=== PATIENT | female | born 1945 | race Caucasian/White ===

== ENCOUNTER → 2016-10-15 | Outpatient (CLI) | payer MEDICARE ==
[2015-11-02 10:03] VITALS: BP 108/67
[~2016-10-15] MED LIST: ALPR0.5T6 PO; BLAC200C PO; CALC500T27 PO; CITA20TA5 PO; GLUC100018 PO; LAMO25TB2 PO; MULT1TAB97 PO; OLAN10TA9 PO; OMEG500C3 PO; QUET150T PO; TRAZ50TA15 PO
--- NOTE | 2016-10-15 15:22 | RAD ---
DATE: 10/15/2016 EXAM: DIGITAL DIAGNOSTIC RT, BREAST RIGHT HISTORY: Suspicious microcalcifications COMPARISON: 09/13/2016 This study was interpreted with the benefit of Computerized Aided Detection (CAD). FINDINGS: Outside studies demonstrated a tight cluster of numerous microcalcifications in the posterior aspect of the right breast seen in only one projection. Today we performed multiple exaggerated CC and straight the lateral, lateral medial and MLO views to optimally delineate these calcifications prior to planned biopsy. These calcifications were redemonstrated. They lie far posteriorly at the 9:30 location in the left breast. Their far posterior location would be quite problematic for stereotactic biopsy. Right breast ultrasound, 10/15/2016: A targeted ultrasound of the right breast was performed in attempt to localize the suspicious microcalcifications. The cluster of calcifications could not be visualized sonographically. IMPRESSION: Suspicious microcalcifications at the 9:30 location in the right breast. Biopsy following attempted needle localization is suggested for further evaluation. BI-RADS CATEGORY: 4 SUSPICIOUS ABNORMALITY- BIOPSY SHOULD BE CONSIDERED RECOMMENDED FOLLOW-UP: BIO BIOPSY RECOMMENDED Note: Findings were discussed with the patient at the time of the exam and she is aware of our recommendation for biopsy. PQRS compliance statement: Patient information was entered into a reminder system with a target due date for the next mammogram. Mammography is a sensitive method for finding small breast cancers, but it does not detect them all and is not a substitute for careful clinical examination. A negative mammogram does not negate a clinically suspicious finding and should not result in delay in biopsying a clinically suspicious abnormality. "Our facility is accredited by the [employer] Mammography Program."
== END | disposition home or self-care (01) ==
LOC: MAMMO 13:54
PROVIDERS: ATTEND Surgery
DX: R92.8 Other abnormal and inconclusive findings on diagnostic imaging of breast (principal)
CPT/HCPCS: 76641; G0206; 77065

== ENCOUNTER 2016-10-29 06:49 | Day surgery (SDC) | payer MEDICARE ==
[~2016-10-29] VITALS: Ht 167.6 cm; Wt 74.4 kg
[~2016-10-29 06:49] MED LIST changes: +BLAC540C4 PO; +BUSP10TA PO; +ERGO2000 PO; +IBUP200T43 PO; +QUET200T4 PO; +TRAZ100T12 PO; +TRIA10.8 NS
[2016-10-29] MEDS ORDERED: PROCHLORPERAZINE 10 MG/2 ML VIAL. IV PRN (07:00)
[2016-10-29] MEDS ORDERED: IV RINGERS,LACTATED 1000ML 1,000 ML IV SCH (07:00)
[2016-10-29] MEDS ORDERED: ONDANSETRON PF 4 MG/2 ML VIAL. IV PRN (07:00)
[2016-10-29] MEDS ORDERED: fentaNYL PF VIAL 100 MCG/2 ML VIAL IV PRN (07:00)
[2016-10-29] MEDS ORDERED: LIDOCAINE 1% 1 ML SYRINGE. ID PRN (07:00)
[2016-10-29] MEDS ORDERED: BUPIVAC MPF-EPI 0.5%-1:200000 30 ML VIAL. ONE (07:18)
[2016-10-29] MEDS ORDERED: LIDOCAINE 1% / SOD BICARB 8.4% 20 ML VIAL. IJ ONE (07:45)
[2016-10-29] MEDS ORDERED: ONDANSETRON PF 4 MG/2 ML VIAL. ONE (08:31)
[2016-10-29] MEDS ORDERED: fentaNYL PF VIAL 100 MCG/2 ML VIAL ONE (08:31)
[2016-10-29] MEDS ORDERED: DESFLURANE 31 TO 60 MINUTES IH ONE (08:31)
[2016-10-29] MEDS ORDERED: DEXAMETHASONE SOD PHOS 20 MG/5 ML VIAL. ONE (08:31)
[2016-10-29] MEDS ORDERED: LIDOCAINE 2% PF Vial for OR 5 ML VIAL. ONE (08:31)
[2016-10-29] MEDS ORDERED: PROPOFOL 20 ML IV ONE (08:31)
--- NOTE | 2016-10-29 08:54 | RAD ---
Right breast needle localization, 10/29/2016: History: Suspicious microcalcifications Previous studies demonstrated a cluster of suspicious microcalcifications at approximately the 9:00 location posteriorly in the right breast. Under local anesthesia, aseptic conditions and mammographic guidance a Kopan's needle with modified retention wire was passed through this area via a lateral approach. The needle was then removed and the wire left in place. The final images show that the cluster of suspicious microcalcifications lies directly anterior to the proximal aspect of the thickened portion of the retention wire, approximately 5 cm deep to the skin surface. The patient tolerated the procedure well and was sent to surgery in good condition.
--- NOTE | 2016-10-29 10:08 | RAD ---
Right specimen mammogram, 10/29/2016: History: Suspicious microcalcifications A digital mammogram of a surgical specimen from the right breast was performed. The targeted microcalcifications lie near the center of the specimen at the 8F level in the specimen container, directly adjacent to the thickened portion of the retention wire.
--- NOTE | 2016-10-29 10:27 | PDOC ---
BRIEF OPERATIVE NOTE Date: October 29, 2016 Pre-Op Diagnosis calcifications right breast Post-Op Diagnosis same Procedure Performed needle localization biopsy Surgeon Mckinley Anesthesia Type: General Blood Loss 10cc IV Fluid 400cc Specimens Obtained needle localized tissue Findings specimen X-ray showed the calcifications contained within the specimen Complications nonr Additional Remarks Wk # [id number] HAKEEM NORIEGA MD October 29, 2016 10:27
--- NOTE | 2016-10-29 10:28 | DISCH ---
DISCHARGE INSTRUCTIONS Condition on Discharge Condition on Discharge: Stable Activity After Discharge Activity Instructions for Disc: Activity as tolerated, Avoid exertion Driving Instructions after Dis: Do not drive today Diet after Discharge Diet after Discharge: Regular Wound Incision Care Wound/Incision Care: Ice to area for comfort Other wound/incision instructi: october Follow-Up Follow Up With: Mckinley next week HAKEEM NORIEGA MD October 29, 2016 10:28
[2016-10-29] MEDS: fentaNYL PF VIAL 100 MCG/2 ML VIAL IV PRN ×2 (10:34→10:41)
[2016-10-29] MEDS ORDERED: TRAM-29 PO ×2 (10:38→10:39)
[2016-10-29] MEDS ORDERED: traMADol 50 MG TABLET PO PRN (11:15)
--- NOTE | 2016-10-29 11:25 | OP ---
DATE OF SURGERY: 10/29/2016 PREOPERATIVE DIAGNOSIS: Calcifications, right breast. POSTOPERATIVE DIAGNOSIS: Calcifications, right breast. PROCEDURE: Needle localization, breast biopsy, right. SURGEON: Hakeem Noriega MD. ANESTHESIA: General LMA. ESTIMATED BLOOD LOSS: 10 mL. IV FLUIDS: 400 mL. INDICATIONS: The patient is a 71-year-old with calcific changes in the right breast, brought for a biopsy. DESCRIPTION OF PROCEDURE: The patient went to the [facility], underwent localization of some calcifications in the right breast. She was brought to the OR where she was given a general LMA and the right breast and chest were prepped and draped in the usual sterile fashion. A curvilinear incision between the entry point of the wire and the nipple areolar complex in the quadrant was infiltrated with local anesthetic, sharply incised and dissection carried down to the localization wire. Wire was delivered into the wound. Dissection carried medially to identify the area corresponding to the changes on the mammogram. This tissue anterior to the proximal shoulder of the localization wire was harvested sharply and sent to Radiology for specimen radiograph. Hemostasis in the wound obtained with cautery. The dissection had carried down to the rib through some pectoralis musculature. With the cavity filled with sterile saline, a Valsalva was administered by Anesthesia up to 30 cm water with no suggestion of an air leak identified. While waiting for the report from Radiology, the pectoralis musculature was approximated with 3-0 Vicryl. The breast tissue approximated with 3-0 Vicryl. After an intraoperative report confirming the presence of the calcifications in the specimen was received by the OR, the skin incision was closed with a subcuticular 4-0 Monocryl. Steri-Strips and sterile dressing applied. The patient awakened from her anesthetic and taken to the recovery room in satisfactory condition. HAKEEM NORIEGA MD DR: DANIKA/urbano JOB#: [id number] / [id number]
[2016-10-29 11:56] VITALS: BP 154/58
--- NOTE | 2016-11-01 08:39 | PATHOLOGY ---
PATHOLOGY REPORT * * * * * * * * FINAL DIAGNOSIS: Breast and skeletal muscle tissue, right breast biopsy: - Flat epithelial atypia, focal, with associated calcifications. - Stromal fibrosis and mild duct ectasia, focal. - Neuroma, small. COMMENT: Sections of the right breast biopsy show fibrocystic changes and a small focus of flat epithelial atypia with associated calcifications. There is also a small neuroma. There is no evidence of malignancy. REPORT ELECTRONICALLY SIGNED BY: Cameron Buck M.D. DATE/TIME: 11/01/2016 08:38 * * * * * * * * GROSS PATHOLOGY: Received in formalin, labeled "Aminah-right breast biopsy" is an irregular portion of yellow-brown fibrofatty tissue consistent with a wire localized, unoriented breast excisional biopsy (7 g, 5.0 x 4.2 x 0.7 cm). The specimen has been flattened by a radiological container. The external surface of the unoriented tissue is inked black and the tissue is sectioned to reveal a yellow-hackett to white-hackett fibrofatty cut surface. The fibrotic areas are focally indurated. However, no discrete masses are grossly identified. The specimen is submitted entirely in cassettes A1-A8. Time surgically removed: 9:45 on 10/29/16, time placed in formalin: 10:30 on 10/29/16, time of fixation: 35 hours 25 minutes (KIMBERLY; 10/30/2016) INITIAL CPT CODE(S): A; 55273 Professional services performed [place] [address] Technical services performed by [facility] at [address] [place] [address] [address], [place] [address]. SPECIMEN(S) RECEIVED: A.Right breast biopsy CLINICAL HISTORY: Right breast calcifications on mammogram PATIENT: JACINTO NAVARRO /AGE: 510/28/1945 (Age: 71) PATIENT #: [id number] ALT CASE #: SPECIMEN COLLECTION DATE: 10/29/2016 SPECIMEN RECEIVED DATE: 10/29/2016 [facility] - [address] [place] [address] - PHONE: [phone] * * * END OF REPORT * * *
--- NOTE | 2016-11-14 13:25 | PDOC1 ---
History and Physical Date of Admission Date of Admission DATE: 10/29/16 TIME: 07:30 Identification/Chief Complaint Chief Complaint calcifications right breast Problems: Source Source: Patient History of Present Illness History of Present Illness Ms. Burr is a 71-year-old female who on recent mammography had some calcifications in the lower outer aspect of her right breast. She is brought for needle localization biopsy. Past Medical History Cardiovascular: No pertinent hx Pulmonary: No pertinent hx GI: No pertinent hx Psych: Anxiety, Bipolar Past Surgical History Past Surgical History: Tonsillectomy, Other (hemorrhoids, breast implants, subsequent removal, back surgery) Family History Family History: Diabetes, Heart Disease, Stroke Social History Smoke: No ALCOHOL: none Drugs: None Current Medications Current Medications Current Medications Ondansetron HCl (Zofran) 4 mg PRN Q6HRS PRN IV NAUSEA/VOMITING; Start 10/29/16 at 07:00; Stop 10/29/16 at 12:10; Status DC Fentanyl Citrate (Fentanyl 2ml Vial) 25 mcg PRN Q5MIN PRN IV MILD PAIN; Start 10/29/16 at 07:00; Stop 10/29/16 at 12:10; Status DC Fentanyl Citrate (Fentanyl 2ml Vial) 50 mcg PRN Q5MIN PRN IV MODERATE PAIN Last administered on 10/29/16 10:41; Start 10/29/16 at 07:00; Stop 10/29/16 at 12:10; Status DC Ringer's Solution 1,000 ml @ 30 mls/hr Q24H IV Last administered on 10/29/16 07:00; Start 10/29/16 at 07:00; Stop 10/29/16 at 12:10; Status DC Lidocaine HCl 2 ml PRN 1X PRN ID PRIOR TO IV START; Start 10/29/16 at 07:00; Stop 10/29/16 at 12:10; Status DC Prochlorperazine Edisylate (Compazine) 5 mg PACU PRN PRN IV NAUSEA, MRX1; Start 10/29/16 at 07:00; Stop 10/29/16 at 12:10; Status DC Cefazolin Sodium/ Dextrose 50 ml @ 100 mls/hr 1X PREOP PRN IV PRIOR TO PROCEDURE Last administered on 10/29/16 09:30; Start 10/29/16 at 06:00; Stop at 12:10; Status DC Bupivacaine HCl/ Epinephrine Bitart (Sensorcain-Mpf Epi 0.5%-1:414174) 30 ml STK -MED ONCE .ROUTE Last administered on 10/29/16 09:44; Start 10/29/16 at 07:18 ; Stop 10/29/16 at 07:19; Status DC Lidocaine/Sodium Bicarbonate (Buffered Lidocaine 1%) 20 ml 1X ONCE IJ Last administered on 10/29/16 07:45; Start 10/29/16 at 07:45; Stop 10/29/16 at 07:46 ; Status DC Dexamethasone Sodium Phosphate (Decadron) 20 mg STK-MED ONCE .ROUTE ; Start at 08:31; Stop 10/29/16 at 08:32; Status DC Ondansetron HCl (Zofran) 4 mg STK-MED ONCE .ROUTE ; Start 10/29/16 at 08:31; Stop 10/29/16 at 08:32; Status DC Propofol 20 ml @ As Directed STK-MED ONCE IV ; Start 10/29/16 at 08:31; Stop at 08:32; Status DC Lidocaine HCl (Lidocaine Pf 2% Vial) 5 ml STK-MED ONCE .ROUTE ; Start 10/29/16 at 08:31; Stop 10/29/16 at 08:32; Status DC Desflurane (Suprane) 30 ml STK-MED ONCE IH ; Start 10/29/16 at 08:31; Stop 10/29 at 08:32; Status DC Fentanyl Citrate (Fentanyl 2ml Vial) 100 mcg STK-MED ONCE .ROUTE ; Start at 08:31; Stop 10/29/16 at 08:32; Status DC Tramadol HCl (Ultram) 50 mg 1X PACU PRN PO PAIN Last administered on 10/29/16 11:21; Start 10/29/16 at 11:15; Stop 10/29/16 at 12:10; Status DC Active Scripts Active Reported Ultram (Tramadol Hcl) 50 Mg Tablet 50 Mg PO Q4H PRN LAST DOSE GIVEN: DATE: TIME: Nasacort (Triamcinolone Acetonide) 10.8 Ml [place] 2 [place] NS QEVNG Buspirone Hcl 10 Mg Tablet 2 Tab PO TID Motrin Ib (Ibuprofen) 200 Mg Tablet 200 Mg PO PRN PRN [place] 540 Mg Capsule 540 Mg PO Vitamin D2 (Ergocalciferol (Vitamin D2)) 2,000 Unit Tablet 2,000 Unit PO DAILY Trazodone Hcl 100 Mg Tablet 1 Tab PO PRN QHS PRN Seroquel (Quetiapine Fumarate) 200 Mg Tablet 1 Tab PO QHS Allergies Allergies: Coded Allergies: prednisone (Unverified Allergy, Severe, Photosensitivity, 10/29/16) had hallucinatioins,out of it for a couple of days and sensitivity to lights and sounds codeine (Unverified Allergy, Intermediate, Unknown, 10/29/16) had a possible reaction years ago with a larger dose , but recently had a smaller dose and did OK with it ROS Review of System Negative with exception of present complaints Physical Exam General: Alert, Oriented X3, Cooperative, No acute distress HEENT: Atraumatic Lungs: Clear to auscultation Heart: RRR Breasts: No suspicious masses (there is a paucity of breast tissue, well- healed inframammary scars from previous implants) Neuro: Normal speech VTE Prophylaxis Ordered VTE Prophylaxis Devices: Yes VTE Pharmacological Prophylaxi: No Assessment/Plan Assessment/Plan Calcifications right breast Right needle local breast biopsy HAKEEM NORIEGA MD November 14, 2016 13:25
== END 2016-10-29 12:03 | disposition home or self-care (01) ==
LOC: SURG 06:49
PROVIDERS: ATTEND Surgery
DX: R92.0 Mammographic microcalcification found on diagnostic imaging of breast (principal); K21.9 Gastro-esophageal reflux disease without esophagitis; F41.9 Anxiety disorder, unspecified; F32.9 Major depressive disorder, single episode, unspecified; Z85.828 Personal history of other malignant neoplasm of skin; Z86.69 Personal history of other diseases of the nervous system and sense organs
CPT/HCPCS: 19125; 19281; 76098; J0780; J1100; J2405; J2704; J3010; J3490; 88305; C1769